=== PATIENT | male | born 1975 | race African-American/Black ===

== ENCOUNTER 2021-12-25 18:10 | Emergency (ER) | payer OTHER ==
[~2021-12-25] VITALS: Ht 172.7 cm; Wt 84.8 kg
[~2021-12-25 18:10] MED LIST: NEURONTIN300 MG
[2021-12-25] MEDS ORDERED: COZAAR100 MG (18:30)
[2021-12-25] MEDS ORDERED: NORVASC5 MG (18:30)
[2021-12-25] MEDS ORDERED: AMBIEN10 MG (18:31)
== END 2021-12-26 00:42 | disposition home or self-care (01) ==
LOC: ER 18:10
DX: R19.7 Diarrhea, unspecified (principal)